=== PATIENT | female | born 2005 | race Two or more races ===

== ENCOUNTER 2023-12-25 21:04 | Emergency (ER) | payer MEDICAID, SELFPAY ==
[2023-12-25 21:04] VITALS: BMI 22.4
[2023-12-25 21:28] VITALS: BP 112/60; PULSE 69; RESP 18; TEMP 37.7; O2SAT 98
--- NOTE | 2023-12-25 21:38 | EDRME_ITS ---
Rapid Medical Screening Exam [facility] [place] Arrival date/time: 12/25/23 21:04 18F with no significant PMH presents to ED with 2 days of lower ab/pelvic pain. Patient denies dysuria, vaginal bleeding, and diarrhea. Chief Complaint: Abdominal Pain Vital signs: Vital Signs Temperature 99.8 F 12/25/23 21:28 Pulse Rate 69 12/25/23 21:28 Respiratory Rate 18 12/25/23 21:28 Blood Pressure 112/60 12/25/23 21:28 Pulse Oximetry (%) 98 12/25/23 21:28 Oxygen Delivery Method Room Air 12/25/23 21:28
--- NOTE | 2023-12-25 21:38 | XR_ITS ---
Examination: Pelvic ultrasound, transabdominal, complete Technique: Transabdominal ultrasound of the pelvis performed using grayscale imaging Date and time of exam: December 25, 2023 1043 hrs. Indications: Onset of pelvic pain today Findings: Uterus 7.8 x 3.5 x 4.7 cm Endometrial stripe 11 mm No uterine mass or intrauterine gestation Right ovary 3.7 x 3.3 x 2.8 cm arterial flow 18 mm cyst with internal echoes Left ovary 2.6 x 1.6 x 1.6 cm arterial flow Impression: No uterine mass or intrauterine gestation Small right ovarian hemorrhagic cyst
[2023-12-25 22:05] LABS: Basophils % (Auto) 0 % (0-2.5); Eosinophils # (Auto) 0.1 Thou/mm3 (0.0-0.5); Eosinophils % (Auto) 1 % (0-10); Hematocrit 35.6 % (36.0-46.0); Hemoglobin 11.8 g/dL (12.0-16.0); Immature Granulocytes % (Auto) 0 % (0-0); Immature Granulocytes Auto 0.03 Thou/mm3 (0.00-0.00); Lymphocytes # (Auto) 1.6 Thou/mm3 (1.0-4.8); Lymphocytes % (Auto) 19 % (10-50); Mean Corpuscular HGB Conc 33.1 g/dl (31.0-37.0); Mean Corpuscular Hemoglobin 32.5 pg (25.0-35.0); Mean Corpuscular Volume 98 fL (80-100); Monocytes # (Auto) 0.9 Thou/mm3 (0.0-0.8); Monocytes % (Auto) 11 % (0-12); Neutrophils # (Auto) 5.8 Thou/mm3 (1.8-7.7); Neutrophils % (Auto) 68 % (37-80); Nucleated Red Blood Cell % 0 /100 WBC (0); Platelet Count 202 Thou/mm3 (140-440); RDW Standard Deviation 45.6 fL (36.4-46.3); Red Blood Count 3.63 Miln/mm3 (4.00-5.20); White Blood Count 8.5 Thou/mm3 (4.5-11.0)
[2023-12-25 22:20] LABS: Alanine Aminotransferase 10 U/L (10-49); Albumin, Serum 4.8 gm/dL (3.5-5.0); Albumin/Globulin Ratio 1.6 (1.2-2.2); Alkaline Phosphatase 78 U/L (46-116); Anion Gap 6 (7-16); Aspartate Amino Transferase 14 U/L (0-34); BUN/Creatinine Ratio 11 Ratio (12-20); Bilirubin,Total 0.4 mg/dL (0.3-1.2); Blood Urea Nitrogen 13 mg/dL (9-23); Calcium 9.8 mg/dL (8.3-10.6); Calcium (Corrected) 9.8 mg/dL (8.5-10.1); Carbon Dioxide 25.9 mMol/L (20.0-31.0); Chloride 104 mMol/L (98-107); Creatinine (Component) 1.2 mg/dL (0.6-1.3); Estimated Creatinine Clearance 67.3 mL/min (>60); Glucose 101 mg/dL (74-106); Lipase 48 U/L (12-53); Osmolality,Calculated 272 (275-295); Potassium 4.1 mMol/L (3.4-5.1); Sodium 136 mMol/L (136-145); Total Protein 7.8 gm/dL (5.7-8.2); eGFR > 60 See Note
[2023-12-25 22:59] LABS: Collection Type, Urine Clean Catch
[2023-12-25 23:04] LABS: Bilirubin,Urine Negative (Negative); Blood,Urine Negative (Negative); Clarity,Urine Clear (Clear/Hazy); Color,Urine Colorless (Lt Yel-Yel); Glucose, Urine Negative (Negative); Ketones,Urine Negative (Negative); Leukocyte Esterase,Urine Negative (Negative); Nitrite,Urine Negative (Negative); Protein,Urine Negative (Neg - Trace); RBC,Urine < 1 /hpf (0-3); Specific Gravity,Urine 1.009 (1.001-1.035); Squamous Epithelial Cell,Urine < 1 /hpf (0-5); Urobilinogen,Urine Negative mg/dL (0.0-1.0); WBC,Urine 3 /hpf (0-5)
[2023-12-25 23:05] LABS: HCG Qualitative,Urine Negative
[2023-12-25 23:11] LABS: Amphetamine/Methamp Scrn,U Negative (Negative); Barbiturate Screen,Urine Negative (Negative); Benzodiazepines Screen,Urine Negative (Negative); Benzoylecgonine Screen, Ur Negative (Negative); Fentanyl Screen,Urine Negative (Negative); Opiate Screen,Urine Negative (Negative); THC Screen,Urine Negative (Negative)
--- NOTE | 2023-12-26 02:17 | PD.EDABDPN ---
ED Abdominal Pain RME/HPI General Chief Complaint: Abdominal Pain Stated complaint: LOWER ABD PAIN Arrival date/time: 12/25/23 21:04 Limitations: no limitations RME / HPI RME / HPI narrative: 12/25/23 21:04 18F with no significant PMH presents to ED with 2 days of lower ab/pelvic pain. Patient denies dysuria, vaginal bleeding, and diarrhea. ------- Dr. [facility]en[facility]'s Main ED Evaluation: 18yo male with no significant past medical history presents to the ED for a chief complaint of suprapubic pain x 2 days. Patient describes the pain as sharp in nature, reporting it significantly worsened yesterday. She states the pain radiates to her bilateral flanks. Endorses associated nausea and dry heaving. Denies any fever, chills, cough or any other associate symptoms. Denies any history of similar symptoms. LMP was 12/01/23. No known allergies. Related Data Previous Rx's ?Medication ?Instructions ?Recorded naproxen 500 mg tablet (Naprosyn) 500 mg PO BID PRN pain #30 tabs 01/12/22 ondansetron HCl 4 mg tablet 4 mg PO TID PRN nausea and 01/12/22 vomiting #20 tabs Allergies Allergy/AdvReac Type Severity Reaction Status Date / Time No Known Allergies Allergy Verified 12/25/23 21:06 Review of Systems Review of Systems Systems Reviewed: All systems reviewed, normal except as documented Past Medical History Social History SMOKING STATUS: Never smoker ED Exam General Limitations: Present no limitations General appearance: Present alert and in no apparent distress Head Head exam: Present atraumatic Eye Eye exam: Present normal appearance, PERRL and EOMI ENT ENT exam: Present normal exam, normal oropharynx and mucous membranes moist Neck Neck exam: Present normal inspection, full ROM and trachea midline Chest Chest inspection: Present normal inspection and symmetric chest wall rise Respiratory Respiratory exam: Present normal lung sounds bilaterally Cardiovascular Cardiovascular exam: Present regular rate, normal rhythm and normal heart sounds Abdominal Exam Abdominal exam: Present soft and normal bowel sounds; Absent rebound Extremities Exam Extremities exam: Present normal inspection and full ROM; Absent pedal edema Back Exam Back exam: Present normal inspection and full ROM; Absent CVA tenderness (R) or CVA tenderness (L) Neurological Exam Neurological exam: Present alert, oriented X3 and CN II-XII intact Psychiatric Psychiatric exam: Present normal affect and normal mood Skin Skin exam: Present warm, dry, intact and normal color Course Quality Measures none Orders Category Date Time Status US pelvic complete Stat Exams 12/25/23 21:38 Completed CBC Stat Lab 12/25/23 21:48 Completed CMP [Comprehensive Metabolic Panel] Stat Lab 12/25/23 21:48 Completed Drug Screen,Urine Stat Lab 12/25/23 22:52 Completed HCG Qualitative,Urine Stat Lab 12/25/23 22:52 Completed Lipase Stat Lab 12/25/23 21:48 Completed UA [Urinalysis] Stat Lab 12/25/23 22:52 Completed Ketorolac Inj [Toradol Inj] Med 12/26/23 02:25 Discontinued 30 mg IM X1 ONE Vital Signs Vital signs: Vital Signs Temperature 99.8 F 12/25/23 21:28 Pulse Rate 69 12/25/23 21:28 Respiratory Rate 18 12/25/23 21:28 Blood Pressure 112/60 12/25/23 21:28 Pulse Oximetry (%) 98 12/25/23 21:28 Oxygen Delivery Method Room Air 12/25/23 21:28 Pulse ox is 98% on room air, which is normal according to my interpretation. Abdominal Pain MDM Patient data External records reviewed:: [facility] previous records (Per chart review, patient was seen here on 01/12/22 for abdominal pain.) Clinical information provided by:: patient Social determinants that could affect healthcare access:: none Patient has the following chronic illnesses:: none How is presenting disease/condition affected by chronic disease/condition?: no chronic disease Evaluation data The following diagnostics were reviewed and interpreted by me:: lab results and radiology exam(s) Lab and/or radiology exams considered but not ordered:: none Interpretation Summary: CBC is normal, CMP is normal, Lipase is normal, HCG is negative, UA is unremarkable, UDS is negative, according to my interpretation. ----- I have personally reviewed the radiology data and agree with the radiologist's interpretation below: [facility] Report Signed Patient: ROMAN JUAREZ. Record#: [id number] Birthdate: 2005 Age/Sex: 18 / F Location: [facility] Attending Dr: Ordering Physician: Arjun Trinidad PA-C Date of Service: 12/25/23 Procedure(s): US pelvic complete Accession Number(s): [id number] cc: Jude Juarez MD; Eddie Mathur MD; Arjun Trinidad PA-C~ Examination: Pelvic ultrasound, transabdominal, complete Technique: Transabdominal ultrasound of the pelvis performed using grayscale imaging Date and time of exam: December 25, 2023 1043 hrs. Indications: Onset of pelvic pain today Findings: Uterus 7.8 x 3.5 x 4.7 cm Endometrial stripe 11 mm No uterine mass or intrauterine gestation Right ovary 3.7 x 3.3 x 2.8 cm arterial flow 18 mm cyst with internal echoes Left ovary 2.6 x 1.6 x 1.6 cm arterial flow Impression: No uterine mass or intrauterine gestation Small right ovarian hemorrhagic cyst Dictated By: Eddie Mathur MD Signed By: <Electronically signed by Eddie Mathur MD in OV> 12/25/23 2309 Medications / Prescriptions Medications or Prescriptions considered but not ordered:: none Medication administrations:: Medication Administration History Discontinued Medications Ketorolac Tromethamine (Ketorolac Inj 60 Mg/2 Ml Vial) 30 mg IM X1 ONE Stop: 12/26/23 02:26 Last Admin: 12/26/23 02:36 Dose: 30 mg Documented By: SE see above Consultations Consultation(s) initiated? (list below): No Diagnosis Differential diagnosis abdominal pain: acute appendicitis and other (ovarian cyst, UTI, dehydration) Most likely diagnosis given after review of the tests above:: see below Admission Indicated Admission indicated?: not indicated Admission Request Was there a request for admission?: No Disposition Plan Disposition Plan: Discharge Discharge Attestation Discharge Attestation: The patient and all family members were given an opportunity to ask questions and understood the discharge instructions. Discharge instructions specifically effects, indications for sooner follow up or return to the emergency department, and the expected course of current diagnosis. Patient condition: Stable Discharge Plan Plan Patient Disposition: HOME (Self Care) Patient condition on transfer: Stable Prescriptions/Referrals Prescriptions/Med Rec: No Action naproxen [Naprosyn] 500 mg tablet 500 mg PO BID PRN (Reason: pain) Qty: 30 0RF ondansetron HCl 4 mg tablet 4 mg PO TID PRN (Reason: nausea and vomiting) Qty: 20 0RF Referrals: Jude Juarez MD [Primary Care Provider] - In 1 week Problem List Clinical Impression: Hemorrhagic ovarian cyst Patient/Caregiver Discharge Instructions Education Materials: Ovarian Cysts Additional Instructions: You can take [id number] Tylenol 650 mg and/or Motrin 600 mg with food 2-3 times a day for the next 1 to 2 days. Please stay hydrated with with Gatorade. Today you have a small cyst on your right ovary. You will need to follow-up with your primary care physician to get referral to gynecology if needed. Return to emergency department for worsening symptoms, you cannot tolerate liquids, increasing pain, or any other concerns. Print Language: Qatari Stand Alone Forms: [facility] Award Info., Patient Portal Info Letter
[2023-12-26] MEDS: KETOROLAC INJ 60 MG/2 ML VIAL 30 MG IM (02:36)
== END 2023-12-26 02:41 | disposition home or self-care (01) ==
PROVIDERS: Physician Assistant; Emergency Provider Emergency Medicine; PCP Family Medicine
DX: N83.201 Unspecified ovarian cyst, right side (principal)
CPT/HCPCS: 36415; 76856; 80053; 80307; 81001; 81025; 83690; 85025; 96372; 99284; J1885